=== PATIENT | female | born 1935 | race Caucasian/White ===

== ENCOUNTER 2016-11-26 10:35 | Emergency (ER) | payer MEDICARE, OTHER ==
[~2016-11-26] VITALS: Ht 160 cm; Wt 65.0 kg
[2016-11-26 11:19] LABS: ADD SCAN DIFF NO
[2016-11-26 11:22] LABS: BASOPHIL # 0.1 10^3/ul (0.0-0.1); BASOPHILS % 0.5 % (0.0-2.0); EOSINOPHILS # 0.1 10^3/ul (0.0-0.5); EOSINOPHILS % 0.7 % (0.0-7.0); HEMATOCRIT 38.5 % (37.0-47.0); HEMOGLOBIN 12.5 g/dl (12.0-16.0); LYMPHOCYTES # 3.3 10^3/ul (0.8-2.9); MEAN CORPUSCULAR HEMOGLOBIN 29.9 pg (29.0-33.0); MEAN CORPUSCULAR HGB CONC 32.5 g/dl (32.0-37.0); MEAN CORPUSCULAR VOLUME 92.1 fl (82.0-101.0); MONOCYTE # 0.5 10^3/ul (0.3-0.9); MONOCYTES % 4.5 % (0.0-11.0); NEUTROPHIL # 6.6 10^3/ul (1.6-7.5); NEUTROPHILS % 62.7 % (39.0-77.0); PLATELET COUNT 252 10^3/UL (140-415); RED BLOOD COUNT 4.18 10^6/ul (4.20-5.40); RED CELL DISTRIBUTION WIDTH 13.4 % (11.5-14.5); WHITE BLOOD COUNT 10.5 10^3/ul (4.8-10.8)
[2016-11-26 11:33] LABS: ALBUMIN 4.1 g/dl (3.3-4.9); CHLORIDE 102 mmol/L (97-110)
[2016-11-26 11:34] LABS: POTASSIUM 4.1 mmol/L (3.5-5.1); SODIUM 141 mmol/L (135-144)
[2016-11-26 11:36] LABS: ALBUMIN/GLOBULIN RATIO 1.24; ANION GAP 17 (8-16); ASPARTATE AMINO TRANSFERASE 19 IU/L (15-46); BILIRUBIN,INDIRECT 0.2 mg/dl (0-1.1); BILIRUBIN,TOTAL 0.2 mg/dl (0.2-1.3); CARBON DIOXIDE 26 mmol/L (21-31); CREATININE 0.78 mg/dl (0.44-1.00); TOTAL PROTEIN 7.4 g/dl (6.1-8.1)
[2016-11-26 11:37] LABS: ALANINE AMINOTRANSFERASE 38 IU/L (13-69); ALKALINE PHOSPHATASE 43 IU/L (42-121); BLOOD UREA NITROGEN 26 mg/dl (7-20); CALCIUM 9.4 mg/dl (8.4-10.2); GLUCOSE 286 mg/dl (70-220); INR 1.1; PROTIME 14.2 Sec (12.2-14.2); PT RATIO 1.1
--- NOTE | 2016-11-26 11:37 | RADRPT ---
PROCEDURE: CT Brain without contrast. CLINICAL INDICATION: Altered mental status and a 80-year-old female. TECHNIQUE: A CT of the brain was performed on a high-resolution CT scanner utilizing a low dose te chnique with axial imaging from the skull base through the vertex without IV contrast. Multiplanar reformatted images were made. Images were reviewed on a PACS workstation. The CTDIvol is 42.3 mGy and the DLP is 720 mGycm. One or more of the following dose reduction techniques were used: - Automated exposure control. - Adjustment of the mA and/or kV according to patient size. Use of iterative reconstruction technique. COMPARISON: No. FINDINGS: There are vascular calcifications in the cavernous and supracavernous portions of the internal carot id arteries. The fourth ventricle is normal in size. The third and lateral ventricles are normal in size and configuration. There is a 2 mm lacunar infarct in the ventral head of the right caudate nu cleus. No intracranial bleed, mass or acute ischemic changes are identified. There is a right choro id fissure cyst measuring about 5 mm. The visible portions of the globes and extraocular muscles are normal. The paranasal sinuses are cl ear. The mastoid air cells and internal auditory canals are normal. The bony calvarium is intact. IMPRESSION: 1. There are vascular calcifications in the cavernous and supracavernous portions of the internal c arotid arteries. 2. 2 mm lacunar infarct ventral head right caudate nucleus. No acute ischemic changes are identi fied but CT is less sensitive than an MRI and detection of acute ischemic change. RPTAT:AAJJ Physician Deon Date Time Electronically viewed and signed by Physician Deon on 11/26/2016 11:37 ALLYSSA/
[2016-11-26 11:38] LABS: PARTIAL THROMBOPLASTIN TIME 27.2 Sec (25.0-35.0)
[2016-11-26 11:39] LABS: LACTIC ACID 2.4 mmol/L (0.5-2.2)
[2016-11-26 11:41] VITALS: Ht 160 cm; Wt 65.0 kg
[2016-11-26] MEDS ORDERED: CHOL100062 PO (11:41)
[2016-11-26] MEDS ORDERED: GLIM4TAB PO (11:42)
[2016-11-26] MEDS ORDERED: ESOM40CA PO (11:42)
--- NOTE | 2016-11-26 11:42 | ERA ---
ER Documentation Chief Complaint Date/Time DATE: 11/26/16 TIME: 11:40 Chief Complaint HPI On arrival, history from EMS and family: Patient is an 80-year-old female with diabetes who was found unresponsive in her bed this morning by family. Family states that they spoke with her last night and she was normal over the phone at that time. She would not answer the phone this morning and so the property caretaker was called to gain access to her apartment. No focal weakness was noted , no facial droop was noted. There is question of vomiting. History is limited due to patient's condition. 1345: Additional history obtained from patient's daughter, states that the patient sounded normal on the phone at 10pm last night. She called at 8:15 this morning and patient did not answer. Patient called her back at 8:30, but she could not speak and all the daughter could here was the TV in the background. The daughter states that she observed a bowl of oatmeal in the kitchen, and that the patient usually wakes up at 6am. She also thinks the patient showered this morning. The patient was found unresponsive in bed at 9: 55 am. ROS All systems reviewed and are negative except as per history of present illness. Medications Home Meds Reported Medications Insulin Glargine,Hum.rec.anlog (Catherine Krishna) 300 Unit/1 Ml Insuln.pen, 5-15 UNITS SQ QHS IF BS>200-350 11/26/16 Allopurinol* (Allopurinol*) 300 Mg Tablet, 300 MG PO DAILY, TAB 11/26/16 Metoprolol Succinate* (Toprol XL*) 25 Mg Tab.sr.24h, 25 MG PO DAILY, #30 TAB 11/26/16 Sitagliptin* (Januvia*) 100 Mg Tablet, 100 MG PO DAILY, #30 TAB 11/26/16 Ferrous Sulfate* (Ferrous Sulfate*) 325 Mg Tabec, 325 MG PO DAILY, TAB 11/26/16 Fenofibrate, Micronized* (Fenofibrate*) 160 Mg Tablet, 160 MG PO DAILY, TAB 11/26/16 Esomeprazole Mag Trihydrate (Nexium) 40 Mg Capsule.dr, 40 MG PO DAILY, #30 CAP 11/26/16 Glimepiride* (Glimepiride*) 4 Mg Tablet, 4 MG PO WITH BREAKFAST DINNE, TAB 11/26/16 Cholecalciferol* (Vitamin D3*) 1,000 Unit Tablet, 1000 UNIT PO DAILY, TAB 11/26/16 Allergies Allergies: Coded Allergies: No Known Allergy (Unverified , 11/26/16) PMhx/Soc Past medical history: Diabetes mellitus, paroxysmal atrial fibrillation Past surgical history: Right knee Social history: No alcohol or tobacco FmHx Family History: diabetes, No coronary disease Physical Exam Vitals Vital Signs Date Time Temp Pulse Resp B/P Pulse Ox O2 Delivery O2 Flow Rate FiO2 11/26/16 11:41 96.1 64 18 137/89 99 11/26/16 10:50 Nasal Cannula 2 Physical Exam Const: Patient is lethargic, not following commands, does not open eyes to sternal rub Head: Atraumatic Eyes: Normal Conjunctiva, no pallor or icterus ENT: Normal External Ears, Nose and Mouth. Neck: Full range of motion. No meningismus. Resp: Clear to auscultation bilaterally, no wheezes, no rales, no rhonchi Cardio: Regular rate and rhythm, no murmurs Abd: Soft, non tender, non distended. Skin: No petechiae or rashes Ext: No cyanosis, or edema Neur: Lethargic, not following commands, no facial droop, no eye deviation, unable to assess motor function due to not following commands, does not hold either arm or leg up to gravity Psych: Unable to assess Result Diagram: 11/26/16 1059 11/26/16 1059 Results 24 hrs Laboratory Tests Test 11/26/16 10:59 11/26/16 12:25 11/26/16 14:10 Acetaminophen Level < 10.0ug/ml Activated Partial Thromboplast Time 27.2Sec Alanine Aminotransferase (ALT/SGPT) 38IU/L Albumin 4.1g/dl Albumin/Globulin Ratio 1.24 Alkaline Phosphatase 43IU/L Ammonia < 9umol/l Anion Gap 17 Aspartate Amino Transf (AST/SGOT) 19IU/L Basophils # 0.110^3/ul Basophils % 0.5% Blood Urea Nitrogen 26mg/dl Calcium Level 9.4mg/dl Carbon Dioxide Level 26mmol/L Chloride Level 102mmol/L Creatinine 0.78mg/dl Direct Bilirubin 0.00mg/dl Eosinophils # 0.110^3/ul Eosinophils % 0.7% Ethyl Alcohol Level < 10.0mg/dl Globulin 3.30g/dl Glucose Level 286mg/dl Hematocrit 38.5% Hemoglobin 12.5g/dl INR International Normalized Ratio 1.10 Indirect Bilirubin 0.2mg/dl Lactic Acid Level 2.4mmol/L 2.1mmol/L Lymphocytes # 3.310^3/ul Lymphocytes % 31.0% Mean Corpuscular Hemoglobin 29.9pg Mean Corpuscular Hemoglobin Concent 32.5g/dl Mean Corpuscular Volume 92.1fl Mean Platelet Volume 11.0fl Monocytes # 0.510^3/ul Monocytes % 4.5% Neutrophils # 6.610^3/ul Neutrophils % 62.7% Nucleated Red Blood Cells # 0.010^3/ul Nucleated Red Blood Cells % 0.0/100WBC Platelet Count 93009^3/UL Potassium Level 4.1mmol/L Prothrombin Time 14.2Sec Prothrombin Time Ratio 1.1 Red Blood Count 4.1810^6/ul Red Cell Distribution Width 13.4% Salicylates Level < 1.0mg/dl Sodium Level 141mmol/L Thyroid Stimulating Hormone (TSH) 4.270MIU/L Total Bilirubin 0.2mg/dl Total Protein 7.4g/dl Troponin I < 0.012ng/ml White Blood Count 10.510^3/ul Urine Amphetamines Screen Negative Urine Barbiturates Negative Urine Benzodiazepines Screen Negative Urine Bilirubin NEGATIVE Urine Cannabinoids Negative Urine Clarity CLEAR Urine Cocaine Screen Negative Urine Color LT. YELLOW Urine Glucose >=1000% Urine Hemoglobin NEGATIVE Urine Ketones NEGATIVE Urine Leukocyte Esterase NEGATIVE Urine Nitrite NEGATIVE Urine Opiates Screen Negative Urine Specific Colora 1.015 Urine Total Protein NEGATIVE Urine Urobilinogen 0.2 E.U./dL Urine pH 6.0 Current Medications Medications (Trade) Dose Ordered Sig/Marlyn Route PRN Reason Start Time Stop Time Status Last Admin Dose Admin Sodium Chloride (NS) 1,000 ml @ 1,000 mls/hr Q1H ONCE IV 11/26/16 12:30 11/26/16 12:30 DC Sodium Chloride (NS) 2,020 ml BOLUS OVER 2 HOURS STAT IV* 11/26/16 12:06 11/26/16 12:11 DC 11/26/16 14:00 Ceftriaxone Sodium 1 gm 1 gm ONCE ONCE IM 11/26/16 12:30 11/26/16 13:27 DC Ceftriaxone Sodium/Sodium Chloride (Rocephin/NS) 50 ml @ 2,000 mls/hr ONCE ONCE IVPB 11/26/16 13:30 11/26/16 13:31 Cancel Aspirin (Aspirin) 300 mg ONCE ONCE WV 11/26/16 13:30 11/26/16 13:31 DC 11/26/16 14:00 Ondansetron HCl 4 mg 4 mg ONCE STAT IV 11/26/16 13:50 11/26/16 13:52 DC 11/26/16 13:59 Ceftriaxone Sodium (Rocephin) 50 ml @ 100 mls/hr ONCE ONCE IVPB 11/26/16 14:00 11/26/16 14:29 DC 11/26/16 13:59 Ondansetron HCl (Zofran Inj) 4 mg ER BRIDGE PRN IV NAUSEA AND/OR VOMITING 11/26/16 14:00 11/26/16 14:43 DC Acetaminophen 650 mg 650 mg ER BRIDGE PRN PO MILD PAIN/FEVER 11/26/16 14:00 11/26/16 14:43 DC Iohexol 100 ml @ STK-MED ONCE .ROUTE 11/26/16 14:14 11/26/16 14:15 DC 11/26/16 14:39 Sodium Chloride 100 ml @ STK-MED ONCE .ROUTE 11/26/16 14:14 11/26/16 14:15 DC 11/26/16 14:39 Sodium Chloride (1/2 NS) 1,000 ml @ 100 mls/hr Q10H IV 11/26/16 14:29 IV Flush (NS 3 ml) 3 ml PER PROTOCOL IV 11/26/16 14:30 Ondansetron HCl (Zofran Inj) 4 mg Q6H PRN IV NAUSEA AND/OR VOMITING 11/26/16 14:30 Morphine Sulfate (morphine) 2 mg Q4H PRN IV SEVERE PAIN LEVEL 7-10 11/26/16 14:30 Pantoprazole (Protonix Iv) 40 mg DAILY@06 IV 11/27/16 06:00 Enoxaparin Sodium (Lovenox) 40 mg DAILY SC 11/27/16 09:00 Insulin Aspart (Novolog Insulin Pen) NOVOLOG *MODERATE* ALGORI... Q4 SC 11/26/16 17:00 Miscellaneous Information (* Miscellaneous Pharmacy Order) HYPOGLYCEMIA PROTOCOL w... ONCE ONCE XX 11/26/16 14:30 11/26/16 14:42 DC Miscellaneous Information (* Miscellaneous Pharmacy Order) Discontinue Glyburide, Glipizide,... ONCE ONCE XX 11/26/16 14:30 11/26/16 14:42 DC Miscellaneous Information (* Miscellaneous Pharmacy Order) Discontinue all previ... ONCE ONCE XX 11/26/16 14:30 11/26/16 14:42 DC Atorvastatin Calcium (Lipitor) 80 mg HS PO 11/26/16 21:00 Aspirin (Aspirin) 300 mg DAILY WV 11/27/16 09:00 Insulin Glargine (Lantus) 7 unit DAILY@20 SC 11/26/16 20:00 Miscellaneous Information 1 ea NOTE XX 11/26/16 15:00 Glucose (Glutose) 15 gm Q15M PRN PO DECREASED GLUCOSE 11/26/16 15:00 Glucose (Glutose) 22.5 gm Q15M PRN PO DECREASED GLUCOSE 11/26/16 15:00 Dextrose (D50w Syringe) 25 ml Q15M PRN IV DECREASED GLUCOSE 11/26/16 15:00 Dextrose (D50w Syringe) 50 ml Q15M PRN IV DECREASED GLUCOSE 11/26/16 15:00 Glucagon (Glucagen) 1 mg Q15M PRN IM DECREASED GLUCOSE 11/26/16 15:00 Glucose (Glutose) 15 gm Q15M PRN BUCCAL DECREASED GLUCOSE 11/26/16 15:00 Procedures/[facility] EKG: Time 1043, rate 63, atrial fibrillation, normal axis, anterior Q waves, no ischemic ST-T wave changes, occasional PVC. IMPRESSION: 1. Increased interstitial markings associated with cardiomegaly. Acute or chronic interstitial changes must be considered. Cardiomegaly with interstitial infiltrates, interstitial pulmonary edema or chronic interstitial changes associated with a poor inspiration are part of the differential diagnosis. IMPRESSION: 1. There are vascular calcifications in the cavernous and supracavernous portions of the internal carotid arteries. 2. 2 mm lacunar infarct ventral head right caudate nucleus. No acute ischemic changes are identified but CT is less sensitive than an MRI and detection of acute ischemic change. 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 Minimal reconstitution of the cervical portion of the left internal carotid artery. Intracranial segments of the left internal carotid artery does not enhance in the arterial phase. Nearly occlusive 12 mm long thrombus present within the proximal portion of the M1 segment of the left middle cerebral artery with distal reconstitution. New ischemic changes within the brain involving the left temporal and occipital lobes. Results were discussed with Dr. Collado by telephone at 1518 hours on 11/26/[address] Viktor Spears MDM: Patient is an 80-year-old female with last known well time at 10 PM last night, found to be lethargic and nonverbal in bed at approximately 9:55 this morning. Initial exam limited by patient's condition, and could not perform neurologic exam due to patient being non-responsive with no motor effort, and no focal deficit observed. Patient found to have low core temperature and elevated lactic acid, so cultures sent and antibiotics and fluids given in case of occult sepsis. No evidence of pneumonia or UTI on workup. CT head shows old lacunar infarct but no large territory infarct or bleed. There was still concern for CVA, so rectal aspirin is given and I called to admit the patient to Dr. Bach, hospitalist graphic production artist. On repeat evaluation family stated that they believe the patient may have had a slight facial droop since ER arrival, but they are not sure. At this time it was also observed that the patient had mild movement of left arm but none in the right arm, and the patient was found to have a right Babinski sign. At 1345 , additional history obtained from daughter, which gives indirect suggestion that the patient may have been without symptoms between 6 AM and 8:30 AM this morning, based upon finding of both oatmeal the patient's kitchen which may have suggested that she was able to prepare herself breakfast. Based upon new findings that suggest possible large territory infarct, as well is a timing of onset that would make the patient a potential candidate for endovascular treatment (though not a TPA candidate), tele-neurology was consulted and CTA of head and neck was ordered. Based upon advice of tele-neurologist, Dr. Eddy at 1415, I initiated transfer to [facility] immediately, and prior to performing CTA. I discussed care with Dr. Mccauley at [phone], and with Dr. Ramsay at 1456, and they accepted the patient for transfer. CTA was resulted at approximately 1515 and showed a large common carotid thrombus extending into the MCA, as well as interval development of ischemic changes. I discussed the possibility of performing intubation for airway protection with Dr. Ramsay, and he stated that he prefers to not have the patient intubated as long as she is responsive to stimuli, which she currently is. Prior to transfer, noted to withdraw with right arm, and to open eyes to voice and track with eyes. Remains aphasic. On arrival patient did not have any specific findings of stroke, so CTA was not considered immediately on arrival and other diagnoses were pursued. In addition , it was felt that if the patient did prove to have a stroke, last known well time put the patient outside of all windows for treatment, including intravascular therapy. It was only upon the patient developing lateralized findings, as well as obtaining additional history that raised suspicion for a more recent onset of symptoms that it was felt that the patient may be a candidate for endovascular therapy and additional workup was pursued emergently. Initial NIHSS (on arrival): 28 Best NIHSS (just prior to transfer): 18 Critical Care: Time: 35 minutes exlcuding all billable procedures. Treatments/Evaluations: Close monitoring and treatment of unstable vital signs, cardiorespiratory, and neurologic status, while maintaining tight balance of fluid, respiratory, and cardiac interventions. Specifically includes serial evaluations, extensive discussion with family, coordination of transfer care and discussion with multiple consultants. Departure Diagnosis: Primary Impression: Acute ischemic left ICA stroke Additional Impression: Altered mental status Condition: Serious CECILIA COLLADO Nov 26, 2016 11:42
[2016-11-26] MEDS ORDERED: FENO160T13 PO (11:44)
[2016-11-26] MEDS ORDERED: FER325 PO (11:44)
[2016-11-26] MEDS ORDERED: SITA100T8 PO (11:45)
[2016-11-26] MEDS ORDERED: METO25TA7 PO (11:45)
[2016-11-26] MEDS ORDERED: ALLO300T2 PO (11:46)
[2016-11-26 11:47] LABS: ACETAMINOPHEN < 10.0 ug/ml (10.0-30.0); AMMONIA < 9 umol/l (9-30); ETHANOL < 10.0 mg/dl; SALICYLATE < 1.0 mg/dl (5.0-30.0)
[2016-11-26 11:48] LABS: TROPONIN-I < 0.012 ng/ml (0.00-0.12)
[2016-11-26] MEDS ORDERED: INSU300I SQ (11:51)
[2016-11-26] MEDS ORDERED: SODIUM CHLORIDE 0.9% 1L BAG IV* STA (12:06)
--- NOTE | 2016-11-26 12:13 | RADRPT ---
PROCEDURE: XR Chest. CLINICAL INDICATION: Altered mental status. TECHNIQUE: Single frontal view of the chest was obtained COMPARISON: No. FINDINGS: There are increased interstitial markings in the perihilar areas. The pulmonary vasculature is incr eased. There is poor inspiration. There are vascular calcifications in the thoracic aorta. The he art is mildly enlarged. No pleural effusion or asymmetric infiltrate is identified. There are oste ophytes in the thoracic spine pill IMPRESSION: 1. Increased interstitial markings associated with cardiomegaly. Acute or chronic interstitial gomes ges must be considered. Cardiomegaly with interstitial infiltrates, interstitial pulmonary edema or chronic interstitial changes associated with a poor inspiration are part of the differential diagno sis. RPTAT:AAJJ Physician Deon Date Time Electronically viewed and signed by Gilberto Arango Physician on 11/26/2016 12:12 /
[2016-11-26] MEDS ORDERED: CEFTRIAXONE 1 GM INJ IM ONE (12:30)
[2016-11-26] MEDS ORDERED: SOD CHLORIDE 0.9% 1,000 ML IV ONE (12:30)
[2016-11-26 13:00] LABS: ADD UMIC NO; URINE BILIRUBIN (Dip) NEGATIVE (NEGATIVE); URINE BLOOD (Dip) NEGATIVE (NEGATIVE); URINE COLOR LT. YELLOW (YELLOW); URINE GLUCOSE (Dip) >=1000 % (NEGATIVE); URINE KETONES (Dip) NEGATIVE (NEGATIVE); URINE LEUKOCYTE ESTERASE (Dip) NEGATIVE (NEGATIVE); URINE NITRITE (Dip) NEGATIVE (NEGATIVE); URINE TOTAL PROTEIN (Dip) NEGATIVE (NEGATIVE); URINE UROBILINOGEN (Dip) 0.2 E.U./dL (0.1-1.0)
[2016-11-26] MEDS ORDERED: ASPIRIN 300 MG SUPP PR ONE (13:30)
[2016-11-26] MEDS ORDERED: CEFTRIAXONE 1,000 MG in SOD CHLORIDE 0.9% 50 ML IVPB ONE (13:30)
[2016-11-26] MEDS ORDERED: ONDANSETRON 4 MG INJ IV STA (13:50)
[2016-11-26 13:55] LABS: BARBITURATES Negative (NEGATIVE)
[2016-11-26 13:56] LABS: BENZODIAZEPINES Negative (NEGATIVE); CANNABINOIDS Negative (NEGATIVE)
[2016-11-26 13:57] LABS: COCAINE Negative (NEGATIVE)
[2016-11-26 13:59] LABS: OPIATES Negative (NEGATIVE)
[2016-11-26] MEDS ORDERED: ONDANSETRON 4 MG INJ IV PRN ×2 (14:00→14:30)
[2016-11-26] MEDS ORDERED: ACETAMINOPHEN 325 MG TAB PO PRN (14:00)
[2016-11-26] MEDS ORDERED: CEFTRIAXONE 1 GM/NS 50 ML IVPB ONE (14:00)
[2016-11-26] MEDS ORDERED: IOHEXOL 100 ML ONE (14:14)
[2016-11-26] MEDS ORDERED: SOD CHLORIDE 0.9% 100 ML ONE (14:14)
[2016-11-26] MEDS ORDERED: SOD CHLORIDE 0.45% 1,000 ML IV SCH (14:29)
[2016-11-26] MEDS ORDERED: morphine 2 MG INJ IV PRN (14:30)
[2016-11-26] MEDS ORDERED: NACL 0.9% 3 ML SYG IV SCH (14:30)
[2016-11-26] MEDS ORDERED: GLUCOSE GEL 15 GRAM TUBE BUCCAL PRN (15:00)
[2016-11-26] MEDS ORDERED: GLUCAGON 1 MG INJ IM PRN (15:00)
[2016-11-26] MEDS ORDERED: GLUCOSE GEL 15 GRAM TUBE PO PRN ×2 (15:00)
[2016-11-26] MEDS ORDERED: DEXTROSE 50% 50 ML SYRINGE IV PRN ×2 (15:00)
--- NOTE | 2016-11-26 15:28 | RADRPT ---
PROCEDURE: CTA of the neck and brain with contrast. CLINICAL INDICATION: Stroke TECHNIQUE: CT angiography of the neck and brain was performed on a high-resolution multidetector s canner during the administration of intravenous contrast. Multiplanar reconstructions, three-dimensi onal reconstructions, as well as maximal intensity projection images are produced and reviewed. Degr ees of stenosis are evaluated by NASCET criteria with reference to measurements of distal internal c arotid diameter as the denominator for stenosis measurement. One or more of the following dose reduc tion techniques were used: Automated exposure control; Adjustment of the mA and/or kV according to p atient size; Use of iterative reconstruction technique. CTDI = 39, 120 mGy. DLP = 1475 mGy-cm. CONTRAST: 85 ml Omnipaque 350 administered without adverse event. COMPARISON: CT brain 11/26/2016 FINDINGS: CTA NECK: Aortic arch: Mild atherosclerotic changes of the aortic arch are present. Independent origin of the left vertebral artery from the aortic arch is observed. The origins of the great vessels of the ne ck are patent. Right common carotid artery: Patent. Right internal carotid artery: Less than 10% stenosis of the origin of the vessel due to mixed plaqu e in reference to the distal diameter. Right external carotid artery: Patent with normal branching. Left common carotid artery: Large plaque/thrombus present at the bifurcation producing near occlusio n. Left internal carotid artery: Large plaque/thrombus present at the origin producing near occlusion o f greater than 95% stenosis. There is minimal reconstitution of the vessel beyond this near occlusio n. Left external carotid artery: Near occlusion of the origin due to large plaque/thrombus Right vertebral artery: Patent. Left vertebral artery: Patent. Vertebral dominance pattern: Mildly right Additional findings: Minimal interlobular septal thickening seen in the upper lungs may be secondary to minimal cardiopulmonary edema. CTA BRAIN: No significant reconstitution seen of the cavernous portion or terminus of the left internal carotid artery. Minimal irregularities of the cavernous segment of the right internal carotid artery withou t focal stenosis The right A1 segment is patent. The left A1 segment is small in caliber which may be due to limited inflow. An anterior communicating artery is present. The visualized A2 and A3 distribution of the anterior cerebral arteries are patent. 12 mm long thrombus within the M1 segment of the left middle cerebral artery. Left M2 divisions appe ar to reconstitute. Right middle cerebral artery territories patent. Bilateral posterior communicating arteries are patent. The left posterior communicating artery appea rs to enhance some the left posterior communicating artery. The vertebral arteries are patent. The basilar artery is patent. The bilateral posterior cerebral arteries are patent. New ischemic changes within the brain involving the left temporal and occipital lobes. 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 Minimal reconstitution of the cervical portion of the left internal carotid artery. Intracranial se gments of the left internal carotid artery does not enhance in the arterial phase. Nearly occlusive 12 mm long thrombus present within the proximal portion of the M1 segment of the le ft middle cerebral artery with distal reconstitution. New ischemic changes within the brain involving the left temporal and occipital lobes. Results were discussed with Dr. Collado by telephone at 1518 hours on 11/26/[address] Viktor blankenship RPTAT: AADD .Viktor Spears MD, MD Date Time Electronically viewed and signed by .Viktor Spears MD, on 11/26/2016 15:27 .B/
[2016-11-26 15:30] VITALS: TEMP 97.1
[2016-11-26 16:27] VITALS: BP 144/83; PULSE 84; RESP 16
[2016-11-26] MEDS ORDERED: FENTAnyl 50 MCG/ML VIAL IV ONE (16:30)
--- NOTE | 2016-11-26 16:40 | EN ---
Date/Time of Note Date/Time of Note DATE: 11/26/16 TIME: 16:33 ER Progress Note Continuation note: After patient left the ER with critical care team, critical care team return to ER 2 to 3 minutes later with concern that the patient had had an episode of bradycardia with heart rate of 40 lasting approximately 1 minute. There is no other change in clinical status. On arrival back in the ER the patient had a pulse of 70, and a normal to slightly elevated blood pressure. There is no change in mental status or neurologic exam. Due to transfer team concern and request, decision was made to intubate the patient to provide for additional stability for transfer. Call was made to the patient's daughter to obtain consent, and the daughter requested to confirm with her sister. She arrived in the ER 5-10 later and gave consent for intubation. Patient was given 20 mg of etomidate and 100 mg of succinylcholine in rapid sequence intubation and was intubated with a 7.5 ET tube with good end-tidal color change, sustained oxygenation on the monitor, and good breath sounds bilaterally. Patient was given Versed 5 mg and fentanyl 100 g immediately following intubation. Patient experienced a second transient episode of bradycardia with hypertension, which responded spontaneously, with blood pressure in the 140s and pulse in the 70s at time of transfer. I discussed the change in status with Dr. Ramsay at [facility], who did not recommend any further intervention such as administration of mannitol. Transport team was given instructions for vent settings of respiratory rate 16, tidal volume 500, PEEP 5 , FiO2 40%, and target end-tidal CO2 of 35-40. Endotracheal Intubation by me: Pre assessment performed. Pre-oxygenation performed with 100% oxygen RSI: Performed w/o complication or hypoxic events. Medications as ordered. Blade: Mac 4 ET Tube: 7.5 cm Depth: 22 cm at the lip Intubation confirmed by colorimetric CO2, equal breath sounds, quiet over the stomach. Chest X-ray deferred due to necessity of rapid transfer for endovascular neurologic care. CECILIA SHEFFIELD Nov 26, 2016 16:40
[2016-11-26] MEDS ORDERED: INSULIN ASPART [NOVOLOG] 3 ML PEN SC SCH (17:00)
--- NOTE | 2016-11-26 18:04 | HP ---
DATE OF ADMISSION: 11/26/2016 CHIEF COMPLAINT: Altered mental status. HISTORY OF PRESENT ILLNESS: The patient is an 80-year-old female with a history of paroxysmal atria l fibrillation, noninsulin dependent noninsulin dependent diabetes, non-Hodgkin lymphoma in formerly [facility], as well as hypertension. The patient presents with altered mental status. The patient was found by her daughter altered, nonverbal and not moving the right side of the body. The patient was last spoken to in her normal state last night by the daughter. Of note, the patient's daughter states t hat she tried calling her mother in the morning. 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 She had to have the landlord open the door and when the patient was found she had oatmeal on her. Once again, she was nonverbal and not moving the right side of her body. In the ER, CT was negative for any acute stroke. Histo ry is obtained by the patient's daughter who was at bedside. Teleneurology evaluation is pending. PAST MEDICAL HISTORY: Insulin-dependent diabetes, paroxysmal atrial fibrillation, non-Hodgkin lymph jason in remission for 4 years now. The patient is status post chemotherapy in the past. The patient has history of hypertension as well. PAST SURGICAL HISTORY: Right knee replacement. HOME MEDICATIONS: 1. Lantus. 2. Allopurinol. 3. Metoprolol. 4. Januvia. 5. Ferrous sulfate. 6. Fenofibrate. 7. Nexium. 8. Glimepiride. 9. Vitamin D3. ALLERGIES: NO KNOWN DRUG ALLERGIES. FAMILY HISTORY: Cancer in the family, diabetes. SOCIAL HISTORY: History of smoking, but has not smoked for many years. No alcohol abuse, no drug a buse. Lives on her own. REVIEW OF SYSTEMS: A 12-point review of systems cannot be obtained secondary to patient's poor ment ation. PHYSICAL EXAMINATION: VITAL SIGNS: Temperature 96.1, pulse 64, respiratory rate is 18, BP 137/89, saturation 99% on 2 lit ers. GENERAL: Nonverbal, no acute distress. HEENT: Normocephalic, atraumatic. LUNGS: Clear to auscultation. CARDIOVASCULAR: Irregularly irregular. ABDOMEN: Nondistended, nontender, soft. EXTREMITIES: No clubbing, cyanosis, or edema. NEUROLOGIC: Patient not following commands. The patient has a left gaze preference, nonverbal. 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 She is moving her left arm, but not moving the right arm. She does have some mild movement of the right leg. LABORATORIES: White count 7.5, hemoglobin is 12.5, platelets 252. Chemistry normal limits except f or BUN of 26, glucose 286, lactic acid 2.4. TSH 4.27. INR is 1.10, U-tox is negative. UA is roseline l. DIAGNOSTICS: Chest x-ray shows increased markings consistent with cardiomegaly, acute or chronic in terstitial changes, must be consider cardiomegaly with interstitial infiltrates and consider pulmona ry edema and/or chronic changes associated with poor inspiration are part of the differential diagno sis. Brain CT shows vascular calcifications in the cavernous and the supracavernous portion of the internal carotid arteries, 2 mm lacunar infarct, has a right caudate nucleus, no acute ischem ic changes identified. ASSESSMENT AND PLAN: 1. Acute encephalopathy with right-sided weakness, likely secondary to left MCA infarct. The patie nt does appear to be outside the window for TPA as she was heard to be normal last night and she was found to have stroke-like symptoms this morning. Teleneurology evaluation in the ED is pending. W e will follow up the recommendations. We will obtain an MRI, we will obtain a neurology consultatio n. Will treat with aspirin and Lipitor once she can tolerate p.o. medications. We had a PT evaluat ion. Will defer coagulation for her paroxysmal atrial fibrillation. 2. The patient is currently in atrial fibrillation. Her heart rate is controlled. It does not ap pear that she was taking any anticoagulants, though she was on aspirin. We will defer anticoagulati on therapy to neurology. 3. Insulin-dependent diabetes. Will treat with a sliding scale, check A1c and lipid profile. 4. History of non-Hodgkin's lymphoma. The patient has been in remission for the past 4 years. 5. History of hypertension. We will hold patient's Toprol-XL. Of note, the patient's her pa roxysmal atrial fibrillation as well. We will be holding p.o. medications at this time until the pa tient has been cleared by speech therapy. 7. Prophylaxis: Lovenox. Dictated By: FLORES SOTELO/NTS Conf#: [id number] DID#: [id number]
[2016-11-26] MEDS ORDERED: INSULIN GLARGINE [LANtus] 3 ML PEN SC SCH (20:00)
[2016-11-26] MEDS ORDERED: ATORVASTATIN 80 MG TAB PO SCH (21:00)
[2016-11-27] MEDS ORDERED: PANTOPRAZOLE 40 MG INJ IV SCH (06:00)
[2016-11-27] MEDS ORDERED: ASPIRIN 300 MG SUPP PR SCH (09:00)
[2016-11-27] MEDS ORDERED: ENOXAPARIN 40 MG/0.4 ML SYG SC SCH (09:00)
== END 2016-11-26 16:27 | disposition short-term general hospital (02) ==
LOC: E/R 10:35
DX: I63.49 Cerebral infarction due to embolism of other cerebral artery (principal); E11.9 Type 2 diabetes mellitus without complications; I10 Essential (primary) hypertension; Z79.4 Long term (current) use of insulin; Z79.84 Long term (current) use of oral hypoglycemic drugs
CPT/HCPCS: 31500; 36415; 51500; 51702; 70450; 70496; 70498; 71010; 80053; 80306; 80307; 81003; 82140; 83605; 84443; 84484; 85025; 85610; 85730; 87040; 87086; 93005; 96374; 96375; 99291; J0696; J3010; J7030; Q9967; J1815